=== PATIENT | male | born 1945 | race Caucasian/White ===

== ENCOUNTER 2021-04-28 15:52 | Emergency (ER) | payer MEDICARE, OTHER ==
[~2021-04-28 15:52] MED LIST: AUGMENTIN 875-1 EACH PO; BENTYL 20MG TAB20 MG PO; ZOFRAN4 MG PO
[2021-04-28] MEDS ORDERED: ZOFRAN 4 MG TAB4 MG PO (17:03)
== END 2021-04-28 17:25 | disposition home or self-care (01) ==
LOC: ER1 15:52
DX: U07.1 COVID-19 (principal); E78.5 Hyperlipidemia, unspecified; E11.9 Type 2 diabetes mellitus without complications; I10 Essential (primary) hypertension; Z90.49 Acquired absence of other specified parts of digestive tract
CPT/HCPCS: 71045; 99283

== ENCOUNTER → 2021-04-30 | Outpatient (CLI) | payer MEDICARE, OTHER ==
[~2021-04-30] VITALS: Ht 182.9 cm; Wt 103.4 kg
[~2021-04-30] MED LIST changes: +ZOFRAN 4 MG TAB4 MG PO
== END ==
LOC: EROP 13:03
DX: U07.1 COVID-19 (principal); Z23 Encounter for immunization; E11.9 Type 2 diabetes mellitus without complications; I25.10 Atherosclerotic heart disease of native coronary artery without angina pectoris; I10 Essential (primary) hypertension
CPT/HCPCS: M0247; Q0247